=== PATIENT | female | born 1980 | race Caucasian/White ===

== ENCOUNTER 2016-07-31 06:28 | Emergency (ER) | payer MEDICAID ==
[~2016-07-31] VITALS: Wt 63.0 kg
[2016-07-31] MEDS ORDERED: ONDANSETRON (ODT) 4 MG TAB ODT STA (06:51)
[2016-07-31] MEDS ORDERED: DULOXETINE 30 MG CAP DR PO ONE (07:00)
[2016-07-31] MEDS ORDERED: hydrOXYzine HCL 25 MG TAB PO ONE (07:00)
--- NOTE | 2016-07-31 07:20 | ERA ---
ER Documentation Chief Complaint Date/Time DATE: 07/31/16 TIME: 07:00 Chief Complaint suidical ideation from running out of psych meds for 5 days. no plan HPI Patient is a 36-year-old female who recently moved here from the [place]. She states that she has refills on her Cymbalta and hydroxyzine but cannot afford them. She has been out of her medications for the last 5 days and states she is suffering from withdrawal flat type symptoms which include crying and insomnia. She says she is now depressed and suicidal without a plan. She has previously attempted to kill herself with an overdose of narcotics but states she has not taken any pills. She denies any visual or auditory hallucinations. She does complain of feeling nauseated with occasional posttussive emesis and having a runny nose. She says her cough is a dry cough and that she is constipated as well. She has not had any fever, chest pain, shortness of breath , sore throat, otalgia. She does not have any abdominal pain, diarrhea, vaginal bleeding, discharge, dysuria, or hematuria. Her last menstrual period was 2 weeks ago and it is normal. She is not sexually active and denies any possibility of . The remainder review systems are negative. ROS All systems reviewed and are negative except as per history of present illness. Allergies Allergies: Coded Allergies: No Known Allergy (Unverified , 07/31/16) PMhx/Soc History of Surgery: Yes (RT LEG ) Anesthesia Reaction: No Hx Neurological Disorder: No Hx Respiratory Disorders: No Hx Cardiac Disorders: No Hx Psychiatric Problems: Yes (DEPRESSION , ANXIETY ) Hx Miscellaneous Medical Probl: No Hx Alcohol Use: Yes (OCASSIONAL ) Hx Substance Use: Yes (MARIJUANA) Hx Tobacco Use: No Smoking Status: Never smoker FmHx Family History: No coronary disease, No diabetes Physical Exam Vitals Vital Signs Date Time Temp Pulse Resp B/P Pulse Ox O2 Delivery O2 Flow Rate FiO2 07/31/16 06:40 98.5 82 21 131/81 97 Physical Exam Const: [] Well-developed well-nourished female sitting on the bed tearful Head: Atraumatic normocephalic Eyes: Normal Conjunctiva ENT: Normal External Ears, Nose and Mouth. Neck: Full range of motion..~ No meningismus. Resp: Clear to auscultation bilaterally Cardio: Regular rate and rhythm, no murmurs Abd: Soft, non tender, non distended. Normal bowel sounds Skin: No petechiae or rashes Back: No midline or flank tenderness Ext: No cyanosis, or edema Neur: Awake and alert Psych: tearful and depressed Result Diagram: 07/31/16 0715 07/31/16 0715 Results 24 hrs Laboratory Tests Test 07/31/16 07:00 07/31/16 07:15 Urine Amphetamines Screen Negative Urine Bacteria MODERATE Urine Barbiturates Negative Urine Benzodiazepines Screen Positive Urine Bilirubin 1+ Urine Cannabinoids Positive Urine Clarity SLIGHTLY CLOUDY Urine Cocaine Screen Negative Urine Color YELLOW Urine Epithelial Cells FEW Urine Glucose NEGATIVE% Urine Hemoglobin NEGATIVE Urine Ictotest NEGATIVE Urine Ketones TRACE Urine Leukocyte Esterase NEGATIVE Urine Microscopic RBC 0-2/HPF Urine Microscopic WBC 2-5/HPF Urine Nitrite NEGATIVE Urine Opiates Screen Negative Urine Specific [place] >=1.030 Urine Total Protein TRACE Urine Urobilinogen 0.2 E.U./dL Urine pH 6.0 Acetaminophen Level < 10.0ug/ml Alanine Aminotransferase (ALT/SGPT) 36IU/L Albumin 3.9g/dl Albumin/Globulin Ratio 1.18 Alkaline Phosphatase 86IU/L Anion Gap 15 Aspartate Amino Transf (AST/SGOT) 20IU/L Basophils # 0.010^3/ul Basophils % 0.4% Blood Urea Nitrogen 5mg/dl Calcium Level 9.1mg/dl Carbon Dioxide Level 26mmol/L Chloride Level 105mmol/L Creatinine 0.71mg/dl Direct Bilirubin 0.00mg/dl Eosinophils # 0.110^3/ul Eosinophils % 1.1% Ethyl Alcohol Level < 10.0mg/dl Globulin 3.30g/dl Glucose Level 97mg/dl Hematocrit 39.0% Hemoglobin 13.0g/dl Indirect Bilirubin 0.5mg/dl Lymphocytes # 2.410^3/ul Lymphocytes % 22.3% Mean Corpuscular Hemoglobin 31.0pg Mean Corpuscular Hemoglobin Concent 33.3g/dl Mean Corpuscular Volume 93.1fl Mean Platelet Volume 9.0fl Monocytes # 0.410^3/ul Monocytes % 4.2% Neutrophils # 7.610^3/ul Neutrophils % 71.8% Nucleated Red Blood Cells # 0.010^3/ul Nucleated Red Blood Cells % 0.0/100WBC Platelet Count 59386^3/UL Potassium Level 3.8mmol/L Red Blood Count 4.1910^6/ul Red Cell Distribution Width 12.4% Salicylates Level < 1.0mg/dl Serum HCG, Qualitative NEGATIVE Sodium Level 142mmol/L Total Bilirubin 0.5mg/dl Total Protein 7.2g/dl White Blood Count 10.610^3/ul Current Medications Medications (Trade) Dose Ordered Sig/Chela Route PRN Reason Start Time Stop Time Status Last Admin Dose Admin Hydroxyzine HCl (Atarax) 25 mg ONCE ONCE PO 07/31/16 07:00 07/31/16 07:01 DC 07/31/16 07:26 Duloxetine HCl (Cymbalta) 60 mg ONCE ONCE PO 07/31/16 07:00 07/31/16 07:01 DC 07/31/16 07:26 Ondansetron HCl (Zofran Odt) 4 mg ONCE STAT ODT 07/31/16 06:51 07/31/16 06:57 DC 07/31/16 07:26 Procedures/MDM Differential includes but is not limited to depression, suicidal ideation, medication withdrawal 0940: Patient states she feels much improved. She states her suicidal ideation has resolved. I spoke with the psychiatrist who has also cleared her. The social work faculty member is assisting her in getting her medications. She has been given follow-up in the next 4-5 days. It is felt at this time she is stable for discharge home. Departure Diagnosis: Primary Impression: Depression Qualified Code: F32.89 - Other depression Additional Impression: Encounter for medication refill Condition: Stable Patient Instructions: Depression, Taking Medicine Safely Referrals: [facility] Additional Instructions: Please restart your medications as prescribed. Make a follow-up appointment with the community clinic or with psychiatry as instructed in the next 4-5 days. Return to the emergency department if her depression worsens or you have suicidal thoughts. RASHMI CLEMONS Jul 31, 2016 07:19 Urine Glucose NEGATIVE% Urine Hemoglobin NEGATIVE Urine Ictotest NEGATIVE Urine Ketones TRACE Urine Leukocyte Esterase NEGATIVE Urine Microscopic RBC 0-2/HPF Urine Microscopic WBC 2-5/HPF Urine Nitrite NEGATIVE Urine Opiates Screen Negative Urine Specific [place] >=1.030 Urine Total Protein TRACE Urine Urobilinogen 0.2 E.U./dL Urine pH 6.0 Acetaminophen Level < 10.0ug/ml Alanine Aminotransferase (ALT/SGPT) 36IU/L Albumin 3.9g/dl Albumin/Globulin Ratio 1.18 Alkaline Phosphatase 86IU/L Anion Gap 15 Aspartate Amino Transf (AST/SGOT) 20IU/L Basophils # 0.010^3/ul Basophils % 0.4% Blood Urea Nitrogen 5mg/dl Calcium Level 9.1mg/dl Carbon Dioxide Level 26mmol/L Chloride Level 105mmol/L Creatinine 0.71mg/dl Direct Bilirubin 0.00mg/dl Eosinophils # 0.110^3/ul Eosinophils % 1.1% Ethyl Alcohol Level < 10.0mg/dl Globulin 3.30g/dl Glucose Level 97mg/dl Hematocrit 39.0% Hemoglobin 13.0g/dl Indirect Bilirubin 0.5mg/dl Lymphocytes # 2.410^3/ul Lymphocytes % 22.3% Mean Corpuscular Hemoglobin 31.0pg Mean Corpuscular Hemoglobin Concent 33.3g/dl Mean Corpuscular Volume 93.1fl Mean Platelet Volume 9.0fl Monocytes # 0.410^3/ul Monocytes % 4.2% Neutrophils # 7.610^3/ul Neutrophils % 71.8% Nucleated Red Blood Cells # 0.010^3/ul Nucleated Red Blood Cells % 0.0/100WBC Platelet Count 55777^3/UL Potassium Level 3.8mmol/L Red Blood Count 4.1910^6/ul Red Cell Distribution Width 12.4% Salicylates Level < 1.0mg/dl Serum HCG, Qualitative NEGATIVE Sodium Level 142mmol/L Total Bilirubin 0.5mg/dl Total Protein 7.2g/dl White Blood Count 10.610^3/ul Current Medications Medications (Trade) Dose Ordered Sig/Chela Route PRN Reason Start Time Stop Time Status Last Admin Dose Admin Hydroxyzine HCl (Atarax) 25 mg ONCE ONCE PO 07/31/16 07:00 07/31/16 07:01 DC 07/31/16 07:26 Duloxetine HCl (Cymbalta) 60 mg ONCE ONCE PO 07/31/16 07:00 07/31/16 07:01 DC 07/31/16 07:26 Ondansetron HCl (Zofran Odt) 4 mg ONCE STAT ODT 07/31/16 06:51 07/31/16 06:57 DC 07/31/16 07:26 Procedures/MDM Differential includes but is not limited to depression, suicidal ideation, medication withdrawal 0940: Patient states she feels much improved. She states her suicidal ideation has resolved. I spoke with the psychiatrist who has also cleared her. The social work faculty member is assisting her in getting her medications. She has been given follow-up in the next 4-5 days. It is felt at this time she is stable for discharge home. Departure Condition: Stable RASHMI CLEMONS Jul 31, 2016 07:19
[2016-07-31 07:31] LABS: ADD SCAN DIFF NO
[2016-07-31 07:33] LABS: ADD UMIC YES; URINE BILIRUBIN (Dip) 1+ (NEGATIVE); URINE BLOOD (Dip) NEGATIVE (NEGATIVE); URINE COLOR YELLOW (YELLOW); URINE GLUCOSE (Dip) NEGATIVE (NEGATIVE); URINE KETONES (Dip) TRACE (NEGATIVE); URINE LEUKOCYTE ESTERASE (Dip) NEGATIVE (NEGATIVE); URINE NITRITE (Dip) NEGATIVE (NEGATIVE); URINE TOTAL PROTEIN (Dip) TRACE (NEGATIVE); URINE UROBILINOGEN (Dip) 0.2 E.U./dL (0.1-1.0)
--- NOTE | 2016-07-31 07:33 | RADRPT ---
PROCEDURE: XR Chest. CLINICAL INDICATION: Cough TECHNIQUE: Single frontal chest x-ray. COMPARISON: None. FINDINGS: The lungs are clear. No focal opacification is seen. The cardiomediastinal silhouette is unremarka ble. The osseous structures are unremarkable. IMPRESSION: No radiographic acute cardiopulmonary abnormalities. RPTAT: [facility] .Leia Stone MD, MD Date Time Electronically viewed and signed by .Leia Stone MD, on 07/31/2016 07:33 .O/
[2016-07-31 07:37] LABS: BASOPHILS % 0.4 % (0.0-2.0); EOSINOPHILS # 0.1 10^3/ul (0.0-0.5); EOSINOPHILS % 1.1 % (0.0-7.0); LYMPHOCYTES # 2.4 10^3/ul (0.8-2.9); LYMPHOCYTES % 22.3 % (15.0-51.0); MEAN CORPUSCULAR HGB CONC 33.3 g/dl (32.0-37.0); MEAN CORPUSCULAR VOLUME 93.1 fl (82.0-101.0); MONOCYTE # 0.4 10^3/ul (0.3-0.9); MONOCYTES % 4.2 % (0.0-11.0); NEUTROPHIL # 7.6 10^3/ul (1.6-7.5); NEUTROPHILS % 71.8 % (39.0-77.0); PLATELET COUNT 363 10^3/UL (140-415); RED BLOOD COUNT 4.19 10^6/ul (4.20-5.40); RED CELL DISTRIBUTION WIDTH 12.4 % (11.5-14.5); WHITE BLOOD COUNT 10.6 10^3/ul (4.8-10.8)
[2016-07-31 07:40] LABS: CHLORIDE 105 mmol/L (97-110)
[2016-07-31 07:41] LABS: ALBUMIN 3.9 g/dl (3.3-4.9); POTASSIUM 3.8 mmol/L (3.5-5.1); SODIUM 142 mmol/L (135-144)
[2016-07-31 07:43] LABS: BILIRUBIN,INDIRECT 0.5 mg/dl (0-1.1); BILIRUBIN,TOTAL 0.5 mg/dl (0.2-1.3); CREATININE 0.71 mg/dl (0.44-1.00)
[2016-07-31 07:44] LABS: ALANINE AMINOTRANSFERASE 36 IU/L (13-69); ALBUMIN/GLOBULIN RATIO 1.18; ALKALINE PHOSPHATASE 86 IU/L (42-121); ANION GAP 15 (8-16); ASPARTATE AMINO TRANSFERASE 20 IU/L (15-46); BLOOD UREA NITROGEN 5 mg/dl (7-20); CALCIUM 9.1 mg/dl (8.4-10.2); CARBON DIOXIDE 26 mmol/L (21-31); GLUCOSE 97 mg/dl (70-220); TOTAL PROTEIN 7.2 g/dl (6.1-8.1)
[2016-07-31 07:45] LABS: ACETAMINOPHEN < 10.0 ug/ml (10.0-30.0); ETHANOL < 10.0 mg/dl; SALICYLATE < 1.0 mg/dl (5.0-30.0)
[2016-07-31 07:48] LABS: BARBITURATES Negative (NEGATIVE); BENZODIAZEPINES Positive (NEGATIVE); CANNABINOIDS Positive (NEGATIVE)
[2016-07-31 07:50] LABS: COCAINE Negative (NEGATIVE); OPIATES Negative (NEGATIVE)
[2016-07-31 07:52] LABS: BACTERIA,URINE MODERATE; ICTOTEST NEGATIVE (NEGATIVE); URINE RBCS 0-2 /HPF (0)
[2016-07-31] MEDS ORDERED: HYDR-3011 PO (09:46)
[2016-07-31] MEDS ORDERED: DULO60CA6 PO (09:46)
--- NOTE | 2016-07-31 09:58 | PSY ---
Date/Time of Note Date/Time of Note DATE: 07/31/16 TIME: 09:42 Psychiatric Subjective Eval Consent Pt consented to telemedicine: Yes Subjective Evaluation Patient location: emergency Chief Complaint: suidical ideation from running out of psych meds for 5 days. no plan History of present illness 36F with history of depression and anxiety presents with SI in setting of running out of medication. She ran out of cymbalta 5 days ago and was unable to get refills since her provider [place], [place] from. Pt has experienced fever/chills which she associates with cymbalta withdrawal. Yesterday she started having SI but no plan. She was given Cymbalta 60mg in ED and evaluated by SW, who helped her sign up for medicaid. Pt reports she is relieved to have insurance now because cost was also a reason she did not want to fill cymbalta. She is future oriented. She started a new job which she likes. She has family in the area. She is no denying SI/HI intent or plan. She denies using drugs or alcohol. Denies access to weapons. Denies self harm behaviors. Past psychiatric history 1 Hospitalization last May for suicidal gesture. Hospitalization: yes Family History non-contributory Medical history see medical record Allergies: Coded Allergies: No Known Allergy (Unverified , 07/31/16) Substance Abuse Substance use: No known substance abuse Social History Marital status: single Level of education: college DPA/Conservatorship: No Occupation/Alf: Housekeeping Aide Psychiatric Objective Eval Physical Examination: Sleep: Insomnia Appetite: Decreased Energy: Decreased Interest: Decreased Mental Status Examination: Appearance: Groomed Eye Contact: Good Psychomotor Activity: Normal Behavior: Cooperative Speech: Clear AFFECT: Appropriate, Anxious Mood: Appropriate/Full Though Process: Linear Thought Content: Normal Suicidal: No Homicidal: No On 72 hour hold: No Orientation: x4 Cognition: Alert Insight: Intact Judgement: Intact Attention Span: Intact Laboratory Results Laboratory Tests Test 07/31/16 07:00 07/31/16 07:15 Urine Amphetamines Screen Negative Urine Bacteria MODERATE Urine Barbiturates Negative Urine Benzodiazepines Screen Positive Urine Bilirubin 1+ Urine Cannabinoids Positive Urine Clarity SLIGHTLY CLOUDY Urine Cocaine Screen Negative Urine Color YELLOW Urine Epithelial Cells FEW Urine Glucose NEGATIVE% Urine Hemoglobin NEGATIVE Urine Ictotest NEGATIVE Urine Ketones TRACE Urine Leukocyte Esterase NEGATIVE Urine Microscopic RBC 0-2/HPF Urine Microscopic WBC 2-5/HPF Urine Nitrite NEGATIVE Urine Opiates Screen Negative Urine Specific [place] >=1.030 Urine Total Protein TRACE Urine Urobilinogen 0.2 E.U./dL Urine pH 6.0 Acetaminophen Level < 10.0ug/ml Alanine Aminotransferase (ALT/SGPT) 36IU/L Albumin 3.9g/dl Albumin/Globulin Ratio 1.18 Alkaline Phosphatase 86IU/L Anion Gap 15 Aspartate Amino Transf (AST/SGOT) 20IU/L Basophils # 0.010^3/ul Basophils % 0.4% Blood Urea Nitrogen 5mg/dl Calcium Level 9.1mg/dl Carbon Dioxide Level 26mmol/L Chloride Level 105mmol/L Creatinine 0.71mg/dl Direct Bilirubin 0.00mg/dl Eosinophils # 0.110^3/ul Eosinophils % 1.1% Ethyl Alcohol Level < 10.0mg/dl Globulin 3.30g/dl Glucose Level 97mg/dl Hematocrit 39.0% Hemoglobin 13.0g/dl Indirect Bilirubin 0.5mg/dl Lymphocytes # 2.410^3/ul Lymphocytes % 22.3% Mean Corpuscular Hemoglobin 31.0pg Mean Corpuscular Hemoglobin Concent 33.3g/dl Mean Corpuscular Volume 93.1fl Mean Platelet Volume 9.0fl Monocytes # 0.410^3/ul Monocytes % 4.2% Neutrophils # 7.610^3/ul Neutrophils % 71.8% Nucleated Red Blood Cells # 0.010^3/ul Nucleated Red Blood Cells % 0.0/100WBC Platelet Count 31669^3/UL Potassium Level 3.8mmol/L Red Blood Count 4.1910^6/ul Red Cell Distribution Width 12.4% Salicylates Level < 1.0mg/dl Serum HCG, Qualitative NEGATIVE Sodium Level 142mmol/L Total Bilirubin 0.5mg/dl Total Protein 7.2g/dl White Blood Count 10.610^3/ul Assessment and Plan Assessment/Diagnosis [place] I: F39 Mood Disorder NOS; SNRI withdrawal [place] II: deferred [place] III: see medical record [place] IV: recent relocation [place] V: 67 Recommendation/Plan Medication Management Cymbalta 60mg PO daily x 5 days Hydroxyzine home dose x 5 days. Patient should follow up with medication provider within 3-5 days of discharge. 5150 Recommendation: No 5150 recommended. SI has resolved and pt is currently at low risk for imminent danger to self. ERINN SHANKS MD Jul 31, 2016 09:56
[2016-07-31 09:59] VITALS: BP 129/78; PULSE 72; RESP 17; TEMP 98.5
== END 2016-07-31 10:01 | disposition home or self-care (01) ==
LOC: E/R 06:28
DX: F32.89 Other specified depressive episodes (principal); R11.2 Nausea with vomiting, unspecified; Z76.0 Encounter for issue of repeat prescription
CPT/HCPCS: 36415; 71010; 80053; 80306; 80307; 81001; 84703; 85025; Z7502; Z7610; 81003